=== PATIENT | male | born 1950 | race Caucasian/White ===

== ENCOUNTER 2023-04-08 20:29 | Emergency (ER) | payer OTHER ==
[2023-04-08 20:35] VITALS: BP 130/79; PULSE 79; RESP 16; TEMP 98; BMI 34.9
[2023-04-08] MEDS ORDERED: KETOROLAC TROMETHAMINE 15 MG/ML VIAL ONE (21:57)
[2023-04-08] MEDS ORDERED: LIDOCAINE 4% PATCH TP ONE (21:57)
[2023-04-08] MEDS: LIDOCAINE 4% PATCH TP ONE (22:03)
[2023-04-08] MEDS: KETOROLAC TROMETHAMINE 15 MG/ML VIAL IVPUSH ONE (22:03)
[2023-04-08] MEDS ORDERED: METHOCARBAMOL 500 MG TABLET ONE (22:05)
[2023-04-08] MEDS ORDERED: ACETAMINOPHEN INJECTION 100 ML IVPB ONE (22:05)
[2023-04-08] MEDS: METHOCARBAMOL 500 MG TABLET PO ONE (22:06)
[2023-04-08] MEDS: ACETAMINOPHEN 1000 MG/100 ML BAG IVPB ONE (22:06)
[2023-04-08] MEDS: LIDOCAINE PATCH REMOVAL MC SCH (22:06)
[2023-04-08 22:15] LABS: PH,URINE 5.5 (5.0-8.0); URINE APPEARANCE CLEAR; URINE BILIRUBIN NEGATIVE (NEGATIVE); URINE COLOR YELLOW; URINE GLUCOSE (UA) 3+ (NEGATIVE); URINE KETONE NEGATIVE (NEGATIVE); URINE LEUK ESTERASE NEGATIVE (NEGATIVE); URINE NITRITE NEGATIVE (NEGATIVE); URINE PROTEIN NEGATIVE (NEGATIVE); URINE UROBILINOGEN 0.2 mg/dL (0.2-1.0)
[2023-04-08 22:17] LABS: BASO % 0.6 % (0-2.0); EOS % 1.8 % (0-4.5); HEMOGLOBIN 14.3 GM/dL (11.7-16.9); MCH 30.2 pg (25.7-33.7); MEAN CELL VOLUME 88.7 fl (80-96); MEAN PLT VOLUME 7.8 fl (7.5-11.1); NEUT % 56.6 % (42.8-82.8); PLATELET COUNT 318 10^3/uL (134-434); RBC 4.74 M/mm3 (4.00-5.60); WHITE BLOOD COUNT 10.4 K/mm3 (4.0-10.0)
[2023-04-08 22:42] LABS: POTASSIUM 5.3 mmol/L (3.5-5.1)
[2023-04-08 22:44] LABS: ALBUMIN 3.8 g/dl (3.4-5.0); BLOOD UREA NITROGEN 17.1 mg/dL (7-18); CALCIUM 9.4 mg/dL (8.5-10.1)
[2023-04-08 22:47] LABS: CREATININE 0.8 mg/dL (0.55-1.3)
[2023-04-08 22:49] LABS: BILIRUBIN,TOTAL 0.4 mg/dL (0.2-1); TOT PROT 7.7 g/dl (6.4-8.2)
[2023-04-08] MEDS ORDERED: LACTULOSE 20 GM/30 ML UDC (FOR ORAL USE ONLY) ONE (23:13)
[2023-04-08] MEDS: LACTULOSE 20 GM/30 ML UDC (FOR ORAL USE ONLY) PO ONE (23:15)
== END 2023-04-08 23:34 | disposition home or self-care (01) ==
LOC: JERFT 20:29
PROC: 3E033NZ Introduction of Analgesics, Hypnotics, Sedatives into Peripheral Vein, Percutaneous Approach (ICD-10-PCS; principal; 2023-04-08)
PROC: 3E0333Z Introduction of Anti-inflammatory into Peripheral Vein, Percutaneous Approach (ICD-10-PCS; 2023-04-08)
DX: M54.50 Low back pain, unspecified (principal); K59.00 Constipation, unspecified
CPT/HCPCS: 36415; 72100-TC-FY; 74019-TC-FY; 80053; 81003; 85025; 87086; 96374; 96375; 99284-25; J0131

== ENCOUNTER 2023-04-12 12:42 | Emergency (ER) | payer OTHER ==
[2023-04-12 13:02] VITALS: BMI 34.9
[2023-04-12] MEDS ORDERED: MAGNESIUM CITRATE 300 ML BOTTLE ONE (14:01)
[2023-04-12] MEDS: MAGNESIUM CITRATE 300 ML BOTTLE PO ONE (14:19)
[2023-04-12 14:47] LABS: PH,URINE 5.5 (5.0-8.0); URINE APPEARANCE CLEAR; URINE BILIRUBIN NEGATIVE (NEGATIVE); URINE COLOR YELLOW; URINE GLUCOSE (UA) 3+ (NEGATIVE); URINE KETONE TRACE (NEGATIVE); URINE LEUK ESTERASE NEGATIVE (NEGATIVE); URINE NITRITE NEGATIVE (NEGATIVE); URINE PROTEIN NEGATIVE (NEGATIVE); URINE UROBILINOGEN 0.2 mg/dL (0.2-1.0)
[2023-04-12 14:49] LABS: BASO % 0.7 % (0-2.0); EOS % 1.6 % (0-4.5); HEMATOCRIT 43.6 % (35.4-49); HEMOGLOBIN 14.2 GM/dL (11.7-16.9); LYMPH % 29.1 % (8-40); MCHC 32.5 g/dl (32.0-35.9); MEAN CELL VOLUME 89.3 fl (80-96); MEAN PLT VOLUME 7.9 fl (7.5-11.1); MONO % 8.2 % (3.8-10.2); NEUT % 60.4 % (42.8-82.8); PLATELET COUNT 281 10^3/uL (134-434); RBC 4.89 M/mm3 (4.00-5.60); RDW 13.9 % (11.9-15.9); WHITE BLOOD COUNT 8.6 K/mm3 (4.0-10.0)
[2023-04-12 14:55] LABS: CHLORIDE 104 mmol/L (98-107); SODIUM 137 mmol/L (136-145)
[2023-04-12 14:57] LABS: CALCIUM 8.5 mg/dL (8.5-10.1); GLUCOSE,RANDOM 96 mg/dL (74-106)
[2023-04-12 14:58] LABS: ALBUMIN 3.8 g/dl (3.4-5.0); CO2 27 mmol/L (21-32); MAGNESIUM 1.8 mg/dL (1.8-2.4)
[2023-04-12 15:01] LABS: CREATININE 0.8 mg/dL (0.55-1.3); SGOT/AST 45 U/L (15-37); SGPT/ALT 27 U/L (13-61)
[2023-04-12 15:03] LABS: BILIRUBIN,TOTAL 0.6 mg/dL (0.2-1); TOT PROT 7.5 g/dl (6.4-8.2)
[2023-04-12 15:04] LABS: ALK PHOS 64 U/L (45-117)
[2023-04-12 15:07] LABS: ANION GAP 6 mmol/L (4-13); POTASSIUM 6.4 mmol/L (3.5-5.1)
[2023-04-12 16:24] LABS: POTASSIUM 3.9 mmol/L (3.5-5.1)
[2023-04-12 16:26] LABS: CALCIUM 9.2 mg/dL (8.5-10.1)
[2023-04-12 16:27] LABS: BLOOD UREA NITROGEN 13.7 mg/dL (7-18)
[2023-04-12 16:30] LABS: CREATININE 0.8 mg/dL (0.55-1.3)
[2023-04-12 17:08] VITALS: BP 123/70; PULSE 74; RESP 20; TEMP 98
[2023-04-12] MEDS ORDERED: MAGNESIUM HYDROX 2400MG/30ML ORAL SUSPENSION 30 ML CUP PO ONE (18:28)
== END 2023-04-12 19:04 | disposition home or self-care (01) ==
LOC: JER 12:42
DX: K59.00 Constipation, unspecified (principal); R10.32 Left lower quadrant pain; R14.0 Abdominal distension (gaseous)
CPT/HCPCS: 36415; 74177-TC; 80048; 80053; 81003; 82272; 83735; 85025; 87086; 93005; 93010; 99285-25

== ENCOUNTER 2023-05-07 16:47 | Emergency (ER) | payer OTHER ==
[2023-05-07 16:59] VITALS: BP 164/74; PULSE 80; RESP 18; TEMP 97.6; BMI 34.9
[2023-05-07] MEDS ORDERED: ACETAMINOPHEN 325 MG TABLET (FP) ONE (17:55)
[2023-05-07] MEDS ORDERED: KETOROLAC TROMETHAMINE 30 MG/1 ML VIAL ONE (17:55)
[2023-05-07] MEDS ORDERED: LIDOCAINE 4% PATCH TP ONE (17:55)
[2023-05-07] MEDS: ACETAMINOPHEN 500 MG TABLET (FP) PO ONE (18:04)
[2023-05-07] MEDS: LIDOCAINE 4% PATCH TP ONE (18:04)
[2023-05-07] MEDS: KETOROLAC TROMETHAMINE 30 MG/1 ML VIAL IM ONE (18:04)
[2023-05-07 19:43] LABS: PH,URINE 5.5 (5.0-8.0); URINE APPEARANCE CLEAR; URINE BILIRUBIN NEGATIVE (NEGATIVE); URINE COLOR YELLOW; URINE GLUCOSE (UA) 3+ (NEGATIVE); URINE KETONE TRACE (NEGATIVE); URINE LEUK ESTERASE NEGATIVE (NEGATIVE); URINE NITRITE NEGATIVE (NEGATIVE); URINE PROTEIN NEGATIVE (NEGATIVE); URINE UROBILINOGEN 0.2 mg/dL (0.2-1.0)
[2023-05-08] MEDS ORDERED: LIDOCAINE PATCH REMOVAL MC SCH (06:00)
== END 2023-05-07 20:22 | disposition left against medical advice (07) ==
LOC: JER 16:47
PROC: 3E0233Z Introduction of Anti-inflammatory into Muscle, Percutaneous Approach (ICD-10-PCS; principal; 2023-05-07)
DX: M54.50 Low back pain, unspecified (principal)
CPT/HCPCS: 72192-TC; 81003; 87086; 99284-25